=== PATIENT | male | born 1955 | race Caucasian/White ===

== ENCOUNTER → 2019-01-21 | Outpatient (CLI) | payer MEDICARE ==
[~2019-01-21] MED LIST: AEC81 PO; AZAT50TA PO; AZIT500T4 PO; CA C1TAB73 PO; DOXA4TAB3 PO; DULO30CA2 PO; FENT1PAT62 TD; FLUT16H NS; FOLI1TAB15 PO; HYDROCO PO; INSU100C6 SQ; INSU100V12 SQ; LINA290C PO; LOSA100T58 PO; METF-444 PO; METH2.5T6 PO; PANT40TA25 PO; PRED2.5T PO; PRED5TAB PO; [UNRECOGNIZED DRUG - OTHER] PO
== END | disposition home or self-care (01) ==
LOC: SHCH 11:00
PROVIDERS: ATTEND Internal Medicine Cardiovascular Disease
DX: R06.09 Other forms of dyspnea (principal); I20.9 Angina pectoris, unspecified
CPT/HCPCS: 93306

== ENCOUNTER → 2020-05-18 | Outpatient (CLI) | payer MEDICARE ==
[~2020-05-18] MED LIST changes: -PANT40TA25 PO; +PANT40TA54 PO
== END | disposition home or self-care (01) ==
LOC: SHCH 13:28
PROVIDERS: ATTEND Internal Medicine Cardiovascular Disease
DX: R06.09 Other forms of dyspnea (principal)
CPT/HCPCS: 93306; 93356

== ENCOUNTER → 2023-12-15 | Outpatient (CLI) | payer MEDICARE ==
[~2023-12-15] MED LIST changes: -LOSA100T58 PO; +LOSA100T59 PO
== END | disposition home or self-care (01) ==
LOC: SHCH 10:55
PROVIDERS: ATTEND Internal Medicine Cardiovascular Disease
DX: I51.7 Cardiomegaly (principal); R07.9 Chest pain, unspecified; I20.9 Angina pectoris, unspecified
CPT/HCPCS: 93306